=== PATIENT | female | born 1975 | race Caucasian/White ===

== ENCOUNTER 2019-05-16 18:27 | Inpatient (IN) | payer MEDICAID ==
[~2019-05-16] VITALS: Ht 167.6 cm; Wt 74.8 kg
[~2019-05-16 18:27] MED LIST: ARIP2 PO; CLON0.1T PO; CLON0.5T12 PO; DIVA500T52 PO; FLUO-191 PO; NOCURR
[2019-05-16] MEDS ORDERED: HYDR-4061 PO (18:58)
[2019-05-16] MEDS ORDERED: ALBU8HFA IH (18:58)
[2019-05-16] MEDS ORDERED: TRAM50TA4 PO (18:58)
[2019-05-16] MEDS ORDERED: LORA1TAB3 PO (18:58)
[2019-05-16] MEDS ORDERED: MIRT15 PO (18:58)
[2019-05-16 19:22] LABS: BASOPHILS % (AUTO) 2.1 % (0.0-2.0); HEMATOCRIT 31.2 % (36-46); HEMOGLOBIN 9.6 g/dL (12.0-16.0); LYMPHOCYTES # (AUTO) 1.2 K/uL (1.0-4.8); LYMPHOCYTES % (AUTO) 17.2 % (22.0-44.0); MEAN CORPUSCULAR HEMOGLOBIN 28.3 pg (26.0-34.0); MEAN CORPUSCULAR HGB CONC 30.9 G/dL (31.0-37.0); MEAN CORPUSCULAR VOLUME 92 fL (80-100); MONOCYTES # (AUTO) 0.9 K/uL (0.1-1.0); MONOCYTES % (AUTO) 13.7 % (2.0-9.0); NEUTROPHILS # (AUTO) 4.4 K/uL (1.8-7.7); PLATELET COUNT (AUTO) 191 K/uL (150-450); RED CELL DISTRIBUTION WIDTH 17.9 % (11.5-14.5)
[2019-05-16 19:35] LABS: INR 1.1 (0.9-1.1)
[2019-05-16 19:40] LABS: B-TYPE NATRIURETIC PEPTIDE 9 pg/mL (0-100)
[2019-05-16 19:44] LABS: ANION GAP 14 mmol/L (8-16); CALCIUM, TOTAL 8.2 mg/dL (8.8-10.5); CARBON DIOXIDE 17 mmol/L (22-29); CHLORIDE 106 mmol/L (98-107); CREATININE 1.31 mg/dL (0.60-1.30); GLOMERULAR FILTR. RATE CALC 44 mL/min (>60); GLUCOSE,RANDOM 105 mg/dL (70-110); POTASSIUM 3.7 mmol/L (3.5-5.1); SODIUM SERUM 137 mmol/L (136-145); UREA NITROGEN, BLOOD 16 mg/dL (7-18)
[2019-05-16 19:55] LABS: ALANINE AMINOTRANSFERASE 11 U/L (12-78); ALKALINE PHOSPHATASE 245 U/L (46-116); ASPARTATE AMINOTRANSFERASE 51 U/L (15-37); BILIRUBIN,TOTAL 1.1 mg/dL (0.1-1.0); HCG,QUANTITATIVE < 1 mIU/mL (0-6); TOTAL PROTEIN, SERUM 6.9 g/dL (6.4-8.2)
[2019-05-16] MEDS ORDERED: IOVERSOL 350 MG/ML 150 ML VIAL ONE (19:57)
[2019-05-16] MEDS ORDERED: SODIUM CHLORIDE 0.9% 100 ML ONE (19:57)
[2019-05-16] MEDS ORDERED: ONDANSETRON HCL 4 MG/2 ML VIAL IVP ONE (20:00)
[2019-05-16] MEDS ORDERED: MORPHINE SULFATE 2 MG/ML SYRINGE IVP ONE (20:00)
[2019-05-16] MEDS ORDERED: ONDANSETRON HCL 4 MG/2 ML VIAL IVP PRN (22:15)
[2019-05-16] MEDS ORDERED: ALBUTEROL SULFATE HFA 90 MCG/PUFF 8 GM INHALER IH PRN (22:15)
[2019-05-16] MEDS ORDERED: TraMADol HCL 50 MG TABLET PO PRN (22:15)
[2019-05-16] MEDS ORDERED: IPRATROPIUM BROMIDE 0.5 MG/2.5 ML NEB SOLUTION NEB PRN (22:15)
[2019-05-16] MEDS ORDERED: 0.9% SODIUM CHLORIDE 10 ML SYRINGE IVP PRN ×2 (22:15)
[2019-05-16] MEDS ORDERED: ALBUTEROL SULFATE 2.5 MG/0.5 ML NEB SOLUTION NEB PRN (22:15)
[2019-05-16] MEDS: LORazepam 1 MG TABLET PO SCH (23:20)
[2019-05-16] MEDS: MIRTAZAPINE 15 MG TABLET PO SCH (23:20)
[2019-05-16] MEDS: SPIRONOLACTONE 25 MG TABLET PO SCH (23:20)
[2019-05-17] MEDS: MORPHINE SULFATE 2 MG/ML SYRINGE IVP PRN ×4 (00:35→18:02)
[2019-05-17] MEDS: ALBUTEROL SULFATE 2.5 MG/0.5 ML NEB SOLUTION NEB SCH ×4 (02:40→19:13)
[2019-05-17] MEDS: IPRATROPIUM BROMIDE 0.5 MG/2.5 ML NEB SOLUTION NEB SCH ×4 (02:40→19:13)
[2019-05-17 04:31] VITALS: BP 123/84
[2019-05-17 08:15] VITALS: BP 109/86
[2019-05-17] MEDS: PANTOPRAZOLE SODIUM 40 MG DR TABLET PO SCH (08:16)
[2019-05-17] MEDS: SPIRONOLACTONE 25 MG TABLET PO SCH ×2 (08:17→20:11)
[2019-05-17] MEDS: LORazepam 1 MG TABLET PO SCH ×2 (08:18→20:10)
[2019-05-17 11:54] LABS: SPECIMENTYPE,BODY FLUID ASCITES
[2019-05-17 12:05] VITALS: BP 123/81
[2019-05-17] MEDS ORDERED: SODIUM CHLORIDE 0.9% 250 ML IV ONE (12:41)
[2019-05-17] MEDS: ALBUMIN HUMAN 25%-25GM/100ML 100 ML IV SCH ×2 (12:44→20:10)
[2019-05-17 12:50] LABS: APPEARANCE,SPUN,BODY FLUID CLEAR (CLEAR); APPEARANCE,UNSPUN,BODY FLUID HAZY (CLEAR); COLOR,BODY FLUID YELLOW (LT YELLOW); EOSINOPHILS,BF (ANAL) 0 %; LYMPHOCYTES,BODY FLUID 40 %; MONOCYTES,BODY FLUID 58 %; NEUTROPHILS,BODY FLUID 2 %; TOTAL VOLUME,BODY FLUID 5850 mL; WBC, BODY FLUID 29 /cu. mm.
[2019-05-17 12:51] LABS: BASOPHILS,BODY FLUID 0 %
[2019-05-17 16:45] VITALS: BP 102/71
[2019-05-17 19:28] VITALS: BP 101/67
[2019-05-17] MEDS: MIRTAZAPINE 15 MG TABLET PO SCH (20:10)
[2019-05-18] VITALS (7 sets, daily range): BP systolic 97–117; BP diastolic 59–80
[2019-05-18] MEDS: IPRATROPIUM BROMIDE 0.5 MG/2.5 ML NEB SOLUTION NEB SCH ×4 (03:27→20:34)
[2019-05-18] MEDS: ALBUTEROL SULFATE 2.5 MG/0.5 ML NEB SOLUTION NEB SCH ×4 (03:27→20:34)
[2019-05-18] MEDS: ALBUMIN HUMAN 25%-25GM/100ML 100 ML IV SCH (04:16)
[2019-05-18] MEDS: HYDROCODONE/ACETAMINOPHEN 5-325 MG TABLET PO PRN (06:42)
[2019-05-18 07:19] LABS: BASOPHILS % (AUTO) 1.4 % (0.0-2.0); EOSINOPHILS % (AUTO) 6.1 % (1.0-6.0); HEMATOCRIT 23.3 % (36-46); HEMOGLOBIN 7.2 g/dL (12.0-16.0); LYMPHOCYTES # (AUTO) 0.7 K/uL (1.0-4.8); LYMPHOCYTES % (AUTO) 18.3 % (22.0-44.0); MEAN CORPUSCULAR HEMOGLOBIN 28.5 pg (26.0-34.0); MEAN CORPUSCULAR HGB CONC 31.1 G/dL (31.0-37.0); MEAN CORPUSCULAR VOLUME 92 fL (80-100); MONOCYTES # (AUTO) 0.5 K/uL (0.1-1.0); NEUTROPHILS # (AUTO) 2.3 K/uL (1.8-7.7); NEUTROPHILS % (AUTO) 60.2 % (40.0-70.0); RED BLOOD CELL COUNT(AUTO) 2.54 MIL/uL (4.00-5.20); RED CELL DISTRIBUTION WIDTH 17.3 % (11.5-14.5)
[2019-05-18 07:31] LABS: CALCIUM, TOTAL 7.8 mg/dL (8.8-10.5); CREATININE 1.02 mg/dL (0.60-1.30)
[2019-05-18 07:50] LABS: PLATELET COUNT (AUTO) 127 K/uL (150-450)
[2019-05-18] MEDS: PANTOPRAZOLE SODIUM 40 MG DR TABLET PO SCH (08:59)
[2019-05-18] MEDS: LORazepam 1 MG TABLET PO SCH ×2 (08:59→20:06)
[2019-05-18] MEDS: SPIRONOLACTONE 25 MG TABLET PO SCH ×2 (09:00→20:06)
[2019-05-18] MEDS: MORPHINE SULFATE 2 MG/ML SYRINGE IVP PRN ×2 (11:40→18:06)
[2019-05-18] MEDS: FUROSEMIDE 20 MG TABLET PO SCH (11:40)
[2019-05-18] MEDS: LACTULOSE 20 GM/30 ML SOLUTION UDCUP PO SCH ×2 (11:41→20:06)
[2019-05-18] MEDS: MIRTAZAPINE 15 MG TABLET PO SCH (20:06)
[2019-05-19] MEDS: IPRATROPIUM BROMIDE 0.5 MG/2.5 ML NEB SOLUTION NEB SCH ×4 (02:00→20:00)
[2019-05-19] MEDS: ALBUTEROL SULFATE 2.5 MG/0.5 ML NEB SOLUTION NEB SCH ×4 (02:00→20:00)
[2019-05-19] MEDS: HYDROCODONE/ACETAMINOPHEN 5-325 MG TABLET PO PRN (02:36)
[2019-05-19 04:56] VITALS: BP 105/76
[2019-05-19] MEDS: MORPHINE SULFATE 2 MG/ML SYRINGE IVP PRN ×2 (06:52→11:27)
[2019-05-19 08:20] VITALS: BP 116/85
[2019-05-19] MEDS: LORazepam 1 MG TABLET PO SCH (08:32)
[2019-05-19] MEDS: FUROSEMIDE 20 MG TABLET PO SCH (08:32)
[2019-05-19] MEDS: LACTULOSE 20 GM/30 ML SOLUTION UDCUP PO SCH (08:32)
[2019-05-19] MEDS: SPIRONOLACTONE 25 MG TABLET PO SCH (08:32)
[2019-05-19] MEDS: PANTOPRAZOLE SODIUM 40 MG DR TABLET PO SCH (08:32)
[2019-05-19] MEDS ORDERED: ONDANSETRON HCL 4 MG/2 ML VIAL IVP PRN (10:15)
[2019-05-19 12:25] VITALS: BP 111/84
[2019-05-19] MEDS ORDERED: FURO-152 PO (15:06)
[2019-05-19] MEDS ORDERED: SPIR25 PO (15:06)
[2019-05-19] MEDS ORDERED: MIRT15 PO (15:11)
[2019-05-19] MEDS ORDERED: LACT30L PO (15:11)
[2019-05-19 16:08] VITALS: BP 113/87
[2019-05-19] MEDS ORDERED: MIRTAZAPINE 15 MG TABLET PO SCH (21:00)
== END 2019-05-19 18:50 | disposition home or self-care (01) | DRG 280 ==
LOC: EMS 18:28 → 4E 05-17 00:01
PROVIDERS: ADMIT Internal Medicine; ATTEND Internal Medicine
PROC: 0W9G3ZZ Drainage of Peritoneal Cavity, Percutaneous Approach (ICD-10-PCS; principal; 2019-05-17)
PROC: 0W9G3ZZ Drainage of Peritoneal Cavity, Percutaneous Approach (ICD-10-PCS; 2019-05-19)
DX: K70.31 Alcoholic cirrhosis of liver with ascites (principal); F25.9 Schizoaffective disorder, unspecified; R45.851 Suicidal ideations; R65.10 Systemic inflammatory response syndrome (SIRS) of non-infectious origin without acute organ dysfunction; F10.20 Alcohol dependence, uncomplicated; F12.90 Cannabis use, unspecified, uncomplicated; I10 Essential (primary) hypertension; F32.9 Major depressive disorder, single episode, unspecified; Z88.2 Allergy status to sulfonamides; Z88.8 Allergy status to other drugs, medicaments and biological substances; Z90.710 Acquired absence of both cervix and uterus; Z85.05 Personal history of malignant neoplasm of liver
CPT/HCPCS: 49081; 49083; 71275; 74177; 76942; 82042; 82945; 84157; 87070; 87205; 89051; 93005; 94640; 96374; 96375; G0378; J2270; J2405; J7050; P9046